=== PATIENT | male | born 1970 | race Caucasian/White ===

== ENCOUNTER 2024-04-28 10:45 | Emergency (ER) | payer BC, SELFPAY ==
[2024-04-28 11:02] VITALS: BP 148/100; PULSE 100; RESP 24; TEMP 37.2; O2SAT 96; BMI 44.7
[2024-04-28 11:39] LABS: Strep A DNA Probe* NOT DETECTED (Not Detectd)
[2024-04-28 11:53] LABS: PCR FLU A Negative PCR FLU A (Negative); PCR FLU B Negative PCR FLU B (Negative); PCR RSV Negative PCR RSV (Negative); SARS PCR* Negative SARS-CoV-2 (Negative)
--- NOTE | 2024-04-28 12:06 | ED.GENADULT ---
HPI - General Adult General Chief complaint: Sore Throat Stated complaint: sore throat Time Seen by Provider: 04/28/24 11:03 History of Present Illness HPI narrative: Patient is a 53-year-old gentleman who comes in today with a 1 month history of pharyngitis. He has had general malaise body aches fatigue. His cough is nonproductive. Does smoke cigarettes regularly. He has had no recent travel no overt chest pain shortness a breath orthopnea no PND no nausea no vomiting. Patient is otherwise in his usual state of health. Related Data Home Medications ?Medication ?Instructions ?Recorded ?Confirmed amlodipine 5 mg tablet 5 mg PO DAILY 04/28/24 04/28/24 lisdexamfetamine 60 mg capsule 60 mg PO DAILY 04/28/24 04/28/24 Allergies Allergy/AdvReac Type Severity Reaction Status Date / Time No Known Drug Allergies Allergy Verified 04/28/24 11:02 Review of Systems Status of ROS: Reports: 10 or more systems reviewed and unremarkable except as noted in History and below PFSH PFS Social History Smoking Status: Current every day smoker Do you use any of these nicotine containing products: None Second hand tobacco smoke exposure: No How often do you have a drink containing alcohol: 2-4 times a month How many standard drinks containing alcohol do you have on a typical day: 1 or 2 How often do you have six or more drinks on one occasion: Never AUDIT-C Alcohol total score: 2 Non-prescribed substance use: denies use service: No Exam Narrative: Exam Narrative: EXAM GENERAL: Patient appears comfortable and well. EYES: No scleral icterus. ENT: Tympanic membranes and oropharynx normal. THYROID: no thyroid nodules or thyromegaly. LYMPH: No supraclavicular or cervical lymphadenopathy. SKIN: Visible skin seen during exam normal or with benign process only. EXT: No dependent lower extremity pedal edema. HEART: Regular rate and rhythm with no murmurs, rubs, or gallops. LUNGS: Clear to auscultation bilaterally with no crackles or wheezes. ABD: Soft, non tender, non distended. PSYCH: Good eye contact, speech is not pressured. Const: Vital Signs, click to edit/add: Vital Signs - 24 hr 04/28/24 11:02 Temperature 99 F Pulse Rate [Pulse Oximeter] 100 Respiratory Rate 24 Blood Pressure [Ri ght Upper Arm] 148/100 H Pulse Oximetry 96 Oxygen Delivery Me thod Room Air Course Vital Signs Vital signs: Initial Vital Signs Temperature 99 F 04/28/24 11:02 Temperature Source Temporal Artery Scan 04/28/24 11:02 Pulse Rate 100 04/28/24 11:02 Respiratory Rate 24 04/28/24 11:02 Blood Pressure 148/100 H 04/28/24 11:02 Blood Pressure Mean 116 H 04/28/24 11:02 Pulse Oximetry 96 04/28/24 11:02 Oxygen Delivery Method Room Air 04/28/24 11:02 Vital Signs Temperature 99 F 04/28/24 11:02 Pulse Rate 100 04/28/24 11:02 Respiratory Rate 24 04/28/24 11:02 Blood Pressure 148/100 H 04/28/24 11:02 Pulse Oximetry 96 04/28/24 11:02 Oxygen Delivery Method Room Air 04/28/24 11:02 Temperature 99 F 04/28/24 11:02 Pulse Rate 100 04/28/24 11:02 Respiratory Rate 24 04/28/24 11:02 Blood Pressure 148/100 H 04/28/24 11:02 Pulse Oximetry 96 04/28/24 11:02 Oxygen Delivery Method Room Air 04/28/24 11:02 Medical Decision Making MDM Narrative Medical decision making narrative: Patient is a 53-year-old gentleman who comes in today with chronic head neck symptoms. Workup is negative including rapid strep COVID influenza RSV. His exam is normal. I did classification counselor on smoking cessation. I did give him basic instructions for postnasal drip and recommended follow-up with his primary physician as needed. Lab Data Labs: Lab Results 04/28/24 Range/Units 11:00 SARS-CoV-2 (PCR) Negative SARS-CoV-2 (Negative) Influenza Type A (PCR) Negative PCR FLU A (Negative) Influenza Type B (PCR) Negative PCR FLU B (Negative) RSV (PCR) Negative PCR RSV (Negative) Group A Strep DNA NOT DETECTED (Not Detectd) Discharge Plan Discharge Clinical Impression: PND (post-nasal drip) Patient Disposition: Home, Self-Care Condition: Stable Instructions: Postnasal Drip (DC) Additional Instructions: Tylenol Motrin Rest Fluids Joselin as directed. Activity Level: Other Discharge Diet: Other Prescriptions: No Action amlodipine 5 mg tablet 5 mg PO DAILY lisdexamfetamine 60 mg capsule 60 mg PO DAILY Follow Up/Referrals: Davian Hunter MD [Primary Care Provider] - Stand Alone Forms: [employer] Info Instructions
== END 2024-04-28 12:16 | disposition home or self-care (01) ==
PROVIDERS: Emergency Provider Internal Medicine; PCP Family Medicine
DX: R09.82 Postnasal drip (principal)
CPT/HCPCS: 87631; 87651; 99282; 99283